=== PATIENT | female | born 1995 | race Caucasian/White ===

== ENCOUNTER 2017-09-11 13:28 | Emergency (ER) | payer BC, OTHER ==
[~2017-09-11] VITALS: Ht 165.1 cm; Wt 52.7 kg
[2017-09-11 13:32] VITALS: TEMP 36.8; Ht 165.1 cm; Wt 52.7 kg
[2017-09-11 14:10] LABS: BASO % 0.1 %; BASO ABS # 0.02 K/uL (0-0.2); EOS % 0.6 %; EOS ABS # 0.09 K/uL (0-0.5); HEMATOCRIT 42.5 % (37-47); HEMOGLOBIN 14.6 g/dL (12.0-16.0); IG# 0.03 K/uL (0.00-0.02); LYMPH % 5.3 %; LYMPH ABS # 0.85 K/uL (1.2-3.4); MEAN CELL VOLUME 95.3 fL (80-100); MEAN CORPUSCULAR HEMOGLOBIN 32.7 pg (25-34); MEAN CORPUSCULAR HGB CONC 34.4 g/dl (32-36); MEAN PLATELET VOLUME 10.2 fL (7.4-10.4); MONO % 6.5 %; MONO ABS # 1.05 K/uL (0.11-0.59); NEUT % 87.3 %; NEUT ABS # 14.05 K/uL (1.4-6.5); PLATELET COUNT 264 K/uL (130-400); RED CELL DISTRIBUTION WIDTH CV 12.1 % (11.5-14.5); RED CELL DISTRIBUTION WIDTH SD 41.9 fL (36.4-46.3); WHITE BLOOD COUNT 16.09 K/uL (4.8-10.8)
[2017-09-11] MEDS ORDERED: SODIUM CHLORIDE 0.9% 1000ML 1,000 ML IV STA (14:13)
[2017-09-11] MEDS ORDERED: ONDANSETRON INJ 2 MG/ML 2 ML VIAL IV STA (14:13)
[2017-09-11 14:27] LABS: ALBUMIN 4.4 gm/dl (3.4-5.0); CALCIUM 9.2 mg/dl (8.5-10.1); CREATININE 0.82 mg/dl (0.60-1.20); POTASSIUM 3.6 mmol/L (3.5-5.1)
[2017-09-11 14:29] LABS: TOTAL PROTEIN 9.5 gm/dl (6.4-8.2)
[2017-09-11] MEDS ORDERED: BCPILLS PO (15:14)
[2017-09-11] MEDS ORDERED: ONDA4TAB10 SL (15:41)
--- NOTE | 2017-09-11 15:42 | EMERGENCY ROOM VISIT NOTE ---
History First contact with patient: 13:51 Chief Complaint: ABDOMINAL PAIN Stated Complaint: VOMITING, STOMACH PAIN, LOWER BACK PAIN, DIARRHEA Nursing Triage Summary: pt reports since approx 1000 today she has had nausea, vomitting, diarrhea and mid abd pain. History of Present Illness The patient is a 22 year old female who presents to the Emergency Room with complaints of nausea, vomiting and diarrhea which began this morning. The patient states that she ate breakfast, and then 30 minutes later developed abdominal discomfort and nausea and had 2 episodes of vomiting. The patient then develops diarrhea. She did have 2 additional episodes of vomiting. She states that she had Cheerios and milk for breakfast. She reports some abdominal pain which occurred prior to vomiting and has improved at this time. She rates her overall discomfort a 3/10. She denies any urinary symptoms, vaginal discharge or fevers. Review of Systems A complete 10 point review of systems was reviewed with the patient with pertinent positives and negatives as per history of present illness. All else were negative. Past Medical/Surgical History Medical Problems: (1) No significant active problems (2) No significant active problems Social History Smoking Status: Never Smoker Occupation Status: [employer] student Current/Historical Medications Scheduled Control Pills ( Control Pills), 1 TAB PO DAILY Ondasetron Odt (Zofran Odt), 4 MG SL Q6H Physical Exam Vital Signs Date Time Temp Pulse Resp B/P (MAP) Pulse Ox O2 Delivery O2 Flow Rate FiO2 09/11/17 16:05 72 16 101/68 99 09/11/17 14:20 82 18 92/68 96 Room Air 09/11/17 13:32 36.8 94 16 128/82 98 Room Air Physical Exam VITALS: Vitals are noted on the nurse's note and reviewed by myself. Vital signs stable. GENERAL: This is a 22-year-old female, in no acute distress, nondiaphoretic, well-developed well-nourished. SKIN: The skin was without rashes. EYES: Pupils equal round and reactive to light and accommodation. MOUTH: Mucous membranes moist. NECK: Supple without nuchal rigidity. HEART: Regular rate and rhythm without murmurs gallops or rubs. LUNGS: Clear to auscultation bilaterally without wheezes, rales or rhonchi. ABDOMEN: Positive bowel sounds x 4. Soft, no tenderness to palpation. NEURO: Patient was alert and oriented to person place and time. Medical Decision & Procedures Laboratory Results 09/11/17 13:50 Red Blood Count 4.46, Mean Corpuscular Volume 95.3, Mean Corpuscular Hemoglobin 32.7, Mean Corpuscular Hemoglobin Concent 34.4, Mean Platelet Volume 10.2, Neutrophils (%) (Auto) 87.3, Lymphocytes (%) (Auto) 5.3, Monocytes (%) (Auto) 6.5, Eosinophils (%) (Auto) 0.6, Basophils (%) (Auto) 0.1, Neutrophils # (Auto) 14.05, Lymphocytes # (Auto) 0.85, Monocytes # (Auto) 1.05, Eosinophils # (Auto) 0.09, Basophils # (Auto) 0.02 09/11/17 13:50 Test 09/11/17 13:50 White Blood Count 16.09 K/uL (4.8-10.8) Red Blood Count 4.46 M/uL (4.2-5.4) Hemoglobin 14.6 g/dL (12.0-16.0) Hematocrit 42.5 % (37-47) Mean Corpuscular Volume 95.3 fL (80-100) Mean Corpuscular Hemoglobin 32.7 pg (25-34) Mean Corpuscular Hemoglobin Concent 34.4 g/dl (32-36) Platelet Count 264 K/uL (130-400) Mean Platelet Volume 10.2 fL (7.4-10.4) Neutrophils (%) (Auto) 87.3 % Lymphocytes (%) (Auto) 5.3 % Monocytes (%) (Auto) 6.5 % Eosinophils (%) (Auto) 0.6 % Basophils (%) (Auto) 0.1 % Neutrophils # (Auto) 14.05 K/uL (1.4-6.5) Lymphocytes # (Auto) 0.85 K/uL (1.2-3.4) Monocytes # (Auto) 1.05 K/uL (0.11-0.59) Eosinophils # (Auto) 0.09 K/uL (0-0.5) Basophils # (Auto) 0.02 K/uL (0-0.2) RDW Standard Deviation 41.9 fL (36.4-46.3) RDW Coefficient of Variation 12.1 % (11.5-14.5) Immature Granulocyte % (Auto) 0.2 % Immature Granulocyte # (Auto) 0.03 K/uL (0.00-0.02) Urine Color YELLOW Urine Appearance CLEAR (CLEAR) Urine pH 6.5 (4.5-7.5) Urine Specific [place] 1.025 (1.000-1.030) Urine Protein NEG (NEG) Urine Glucose (UA) NEG (NEG) Urine Ketones 1+ (NEG) Urine Occult Blood TRACE (NEG) Urine Nitrite NEG (NEG) Urine Bilirubin NEG (NEG) Urine Urobilinogen NEG (NEG) Urine Leukocyte Esterase TRACE (NEG) Urine WBC (Auto) 5-10 /hpf (0-5) Urine RBC (Auto) 0-4 /hpf (0-4) Urine Hyaline Casts (Auto) 1-5 /lpf (0-5) Urine Epithelial Cells (Auto) >30 /lpf (0-5) Urine Bacteria (Auto) 1+ (NEG) Urine Test NEG (NEG) Anion Gap 7.0 mmol/L (3-11) Est Creatinine Clear Calc Drug Dose 89.5 ml/min Estimated GFR () 117.7 Estimated GFR (Non- 101.6 BUN/Creatinine Ratio 13.2 (10-20) Calcium Level 9.2 mg/dl (8.5-10.1) Total Bilirubin 1.1 mg/dl (0.2-1) Aspartate Amino Transf (AST/SGOT) 20 U/L (15-37) Alanine Aminotransferase (ALT/SGPT) 24 U/L (12-78) Alkaline Phosphatase 55 U/L (45-117) Total Protein 9.5 gm/dl (6.4-8.2) Albumin 4.4 gm/dl (3.4-5.0) Globulin 5.1 gm/dl (2.5-4.0) Albumin/Globulin Ratio 0.9 (0.9-2) Lipase 163 U/L (73-393) Medications Administered Medications (Trade) Dose Ordered Sig/Deya Route Start Time Stop Time Status Last Admin Dose Admin Sodium Chloride 1,000 ml @ 999 mls/hr Q1H1M STAT IV 09/11/17 14:13 09/11/17 15:13 DC 09/11/17 14:19 999 MLS/HR Ondansetron HCl (Zofran Inj) 4 mg NOW STAT IV 09/11/17 14:13 09/11/17 14:14 DC 09/11/17 14:19 4 MG Ondansetron HCl (ZOFRAN ODT 4MG Home Pack) 1 homepack UD ONCE PO 09/11/17 15:45 09/11/17 15:46 DC 09/11/17 16:03 1 HOMEPACK Medical Decision Differential diagnosis includes appendicitis, cholecystitis, gastroenteritis, foodborne illness, ovarian cyst, ovarian torsion, among others. The patient is a 22-year-old female who presents today complaining of vomiting and diarrhea. Labs revealed a leukocytosis of 16,000. This may be secondary to vomiting. Labs are otherwise unremarkable. Urinalysis was not suggestive of infection. Urine was negative. Patient had no significant abdominal tenderness on exam. She felt much better after IV fluids and Zofran. She was able to tolerate something to drink. She will be discharged home with a prescription for Zofran and will follow up with [facility] or her PCP for a recheck. She was advised to return with worsening or new/concerning symptoms. The patient's case was reviewed with Dr. Restrepo, ED attending physician, who agreed with my assessment and treatment plan. Based on the patient's presentation and work up, I feel the patient is stable for outpatient treatment. The patient was educated to return to the emergency department for any worsening of their current condition or new/concerning symptoms. She will follow up with her PCP. Medication Reconcilliation Current Medication List: was personally reviewed by me Blood Pressure Screening Patient's blood pressure: Normal blood pressure Impression Primary Impression: Nausea, vomiting and diarrhea Departure Information Dispostion Home / Self-Care Condition GOOD Prescriptions Ondasetron Odt (ZOFRAN ODT) 4 Mg Tab 4 MG SL Q6H for Nausea, #12 TAB Prov: Evangelina Gallagher PA-C 09/11/17 Referrals No Doctor, Assigned (PCP) Patient Instructions My [facility] Additional Instructions You have been prescribed Zofran to be used for any nausea or vomiting. Take as prescribed. For pain control, you can use the following [id number] medicines (if >12 yo): - Regular strength (325mg/tab) Tylenol (acetaminophen) 2 tabs every 4-6 hours as needed. Do not exceed 12 tablets in a 24 hour period. Avoid taking more than 4 grams (4000 mg) of Tylenol per day. This includes any other sources of acetaminophen you may take on a regular basis. - Regular strength (200 mg/tab) Advil (ibuprofen) 1-2 tabs every 4-6 hours as needed. Do not exceed a dose of 3200 mg per day. Keep a clear liquid diet for the next 1-2 days. After that, you may advance your diet as tolerated. Follow-up with [facility] services/primary care provider as needed. Return to the emergency department with worsening vomiting, pain, fevers or other new/concerning symptoms.
[2017-09-11] MEDS ORDERED: ONDANSETRON HOME PACK 4MG OD TAB PO ONE (15:45)
[2017-09-11 16:05] VITALS: BP 101/68; PULSE 72; O2SAT 99
== END 2017-09-11 16:05 | disposition home or self-care (01) ==
LOC: C.EDB 13:29 → C.EDA 16:05
DX: R10.9 Unspecified abdominal pain (principal); R11.2 Nausea with vomiting, unspecified; R19.7 Diarrhea, unspecified